=== PATIENT | female | born 1985 | race Two or more races ===

== ENCOUNTER 2016-08-29 16:25 | Emergency (ER) | payer SELFPAY ==
[~2016-08-29] VITALS: Ht 154.9 cm; Wt 68.0 kg
[2016-08-29 16:50] VITALS: BP 115/61
[2016-08-29] MEDS ORDERED: ACETAMINOPHEN 325 MG TAB PO ONE (17:00)
== END 2016-08-29 22:03 | disposition home or self-care (01) ==
LOC: ER 16:35
DX: S50.02XA Contusion of left elbow, initial encounter (principal); W19.XXXA Unspecified fall, initial encounter; Y93.89 Activity, other specified; Y99.8 Other external cause status; Y92.096 Garden or yard of other non-institutional residence as the place of occurrence of the external cause
CPT/HCPCS: 73080; 73110

== ENCOUNTER 2023-07-20 19:46 | Emergency (ER) | payer BC, MEDICAID | END 2023-07-20 20:49 | disposition left against medical advice (07) | LOC: ER 19:46 | DX: T78.40XA Allergy, unspecified, initial encounter (principal); Z53.21 Procedure and treatment not carried out due to patient leaving prior to being seen by health care provider; Y92.89 Other specified places as the place of occurrence of the external cause ==

== ENCOUNTER → 2023-08-17 | Outpatient (CLI) | payer BC, MEDICAID ==
[2023-08-17 08:44] LABS: Basophils # (auto) 0 10 ^3/uL (0-0.2); Basophils % (auto) 0.4 % (0.0-2.0); Eosinophils # (auto) 0.2 10 ^3/uL (0-0.8); Eosinophils % (auto) 3.2 % (0.0-7.0); Hematocrit 39.2 % (36.0-46.0); Hemoglobin 12.9 g/dL (12.2-16.2); Lymphocytes % (auto) 37.4 % (10.0-50.0); Mean Corpuscular Hemoglobin 27.8 pg (28.0-32.0); Mean Corpuscular Volume 84.3 fL (80.0-100.0); Monocytes # (auto) 0.5 10 ^3/uL (0-1.3); Monocytes % (auto) 9.2 % (0.0-12.0); Neutrophils # (auto) 2.6 10 ^3/uL (1.6-8.6); Neutrophils % (auto) 49.8 % (37.0-80.0); Nucleated Red Blood Cells % 0.1 %; Red Blood Cells 4.65 10^6/uL (4.0-5.20); Red Cell Distribution Width 14.6 % (11.8-14.3); White Blood Cell 5.2 10^3/uL (4.4-10.8)
[2023-08-17 08:48] LABS: Urine Bacteria FEW /hpf (None Seen); Urine Blood Negative /uL (Negative); Urine Clarity HAZY (Clear); Urine Color Yellow (Yellow); Urine Mucus FEW (None Seen); Urine Protein, UAD Negative (Negative); Urine Specific Gravity 1.025 (1.001-1.035); Urine Urobilinogen Normal (Negative); Urine WBC 1 /hpf (0 - 5); Urine pH 5.5 (5.0-8.0)
[2023-08-17 09:24] LABS: Alanine Aminotransferase 51 U/L (7-40); Alkaline Phosphatase 71 U/L (46-116); Calcium 9.1 mg/dL (8.5-10.1); Chloride 108 mmol/L (98-107); Triglycerides 125 mg/dL (< 150)
[2023-08-17 09:25] LABS: Albumin 4.2 g/dL (3.2-4.8); Anion Gap 7 (5-15); Aspartate Aminotransferase 49 U/L (13-40); BUN/Creatinine Ratio 10.5 (10.0-20.0); Blood Urea Nitrogen 8 mg/dL (9-23); Carbon Dioxide 25 mmol/L (20-30); Cholesterol 174 mg/dL (< 200); Glucose 91 mg/dL (74-106); HDL Cholesterol 36 mg/dL (40-59); LDL Cholesterol 130 mg/dL (< 100); Potassium 4.1 mmol/L (3.5-5.1); Sodium 140 mmol/L (136-145)
[2023-08-17 09:26] LABS: Bilirubin, Total 0.3 mg/dL (0.2-1.0); Total Protein 7.1 g/dL (5.7-8.2)
== END | disposition home or self-care (01) ==
LOC: LAB 08:07
PROVIDERS: ATTEND Family Medicine
DX: Z00.01 Encounter for general adult medical examination with abnormal findings (principal); Z13.89 Encounter for screening for other disorder; T78.40XD Allergy, unspecified, subsequent encounter; X58.XXXD Exposure to other specified factors, subsequent encounter
CPT/HCPCS: 36415; 80053; 80061; 81001; 82306; 82785; 83036; 84443; 85025